=== PATIENT | male | born 2000 | race Caucasian/White ===

== ENCOUNTER 2025-01-27 00:12 | Emergency (ER) | payer MEDICAID ==
[~2025-01-27] VITALS: Ht 165.1 cm; Wt 118.0 kg
[2025-01-27 00:26] VITALS: O2SAT 97
[2025-01-27 01:01] LABS: BASOPHILS % 1.0 % (0.0-2.0); EOSINOPHILS % 0.0 % (0.0-5.0); HEMATOCRIT. 44.3 % (42.0-52.0); HEMOGLOBIN. 15.0 g/dL (14.0-18.0); LYMPHOCYTES % 27.8 % (20.0-50.0); MEAN PLATELET VOLUME 8.4 fl (7.4-10.4); MONOCYTES % 10.3 % (2.0-8.0); NEUTROPHILS % 60.9 % (40.0-76.0); PLATELET 318 x1000/uL (130-400); RED BLOOD CELL COUNT 5.17 mill/uL (4.7-6.1); RED CELL DISTRIBUTION WIDTH 14.5 % (11.6-14.6)
[2025-01-27 01:04] LABS: CREATININE 1.2 mg/dL (0.6-1.3); UREA NITROGEN BLOOD 14 mg/dL (9-23)
[2025-01-27 01:05] LABS: TROPONIN I HIGH SENSITIVITY 16 ng/L (3.0-53)
[2025-01-27] MEDS: ONDANSETRON HCL 4MG/2ML INJ IV ONE (01:34)
[2025-01-27] MEDS: CHLORDIAZEPOXIDE 25MG CAPSULE PO ONE (01:34)
[2025-01-27 01:39] LABS: ASPARTATE AMINOTRANSFERASE 34 IU/L (<34)
[2025-01-27 01:40] LABS: BILIRUBIN DIRECT < 0.1 mg/dL (<=3.0); BILIRUBIN TOTAL 0.4 mg/dL (0.1-1.0); PROTEIN TOTAL 7.3 g/dL (6.0-8.3)
[2025-01-27] MEDS: FOLIC ACID 1 MG, THIAMINE HCL 100 MG, MVI, ADULT NO.1 10 ML in DEXTROSE 5% WATER 1,000 ML IV ONE (02:20)
[2025-01-27 07:38] VITALS: BP 134/82; PULSE 98; RESP 18; TEMP 36.3; O2SAT 96
== END 2025-01-27 07:50 | disposition home or self-care (01) ==
LOC: ER 00:12 → CMPBEDREQ 01-28 07:42
DX: F10.129 Alcohol abuse with intoxication, unspecified (principal); F41.9 Anxiety disorder, unspecified; R00.0 Tachycardia, unspecified; Y90.8 Blood alcohol level of 240 mg/100 ml or more
CPT/HCPCS: 80076; 80048; 80320; 85025; 84484; 36415; 93005; 96365; 96375; 99284; J3490 ×2; J2405; J3411; J7070; G0480